=== PATIENT | male | born 1995 | race American Indian/Alaskan Native ===

== ENCOUNTER 2021-09-06 11:25 | Emergency (ER) | payer SELFPAY ==
[2021-09-06] MEDS ORDERED: ONDANSETRON 4 MG/2 ML INJ IM ONE (11:36)
[2021-09-06] MEDS ORDERED: fentaNYL 100 MCG/2 ML INJ IM ONE (11:36)
[2021-09-06] MEDS ORDERED: TETANUS,DIPH,PERTUSS(ACELL) VACCINE 0.5 ML SYRINGE IM ONE (11:37)
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
[2021-09-06] MEDS ORDERED: HYDROGEN PEROXIDE 118 ML SOLUTION TP ONE (12:15)
[2021-09-06] MEDS ORDERED: LIDOCAINE (1%) 10 MG/1 ML VIAL 20 ML MDV INFILTRATI ONE (12:15)
[2021-09-06] MEDS ORDERED: SODIUM CHLORIDE 0.9% IRR 500 ML BOTTLE IR ONE (12:16)
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
[2021-09-06] MEDS ORDERED: ceFAZolin 1 GM VIAL IM ONE (13:05)
[2021-09-06] MEDS ORDERED: BACITRACIN ZINC OINT 28.4 GM TP STA (13:15)
[2021-09-06 13:55] VITALS: BP 123/85
== END 2021-09-06 13:54 | disposition home or self-care (01) ==
LOC: ED 11:25
DX: S01.81XA Laceration without foreign body of other part of head, initial encounter (principal); S09.90XA Unspecified injury of head, initial encounter; Y08.89XA Assault by other specified means, initial encounter; Y93.89 Activity, other specified; Y92.89 Other specified places as the place of occurrence of the external cause; Y99.8 Other external cause status
CPT/HCPCS: 12015; 70450; 70486; 90471; 90715; 96372; 99284; J0690; J2405; J3010; J3490

== ENCOUNTER 2021-09-06 23:06 | Emergency (ER) | payer SELFPAY ==
[2021-09-06 23:57] VITALS: BP 130/92
[2021-09-07] MEDS ORDERED: NALOXONE 0.4 MG/1 ML INJ IV PRN (00:23)
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
== END 2021-09-07 00:49 | disposition left against medical advice (07) ==
LOC: ED 23:06
DX: R55 Syncope and collapse (principal); F17.200 Nicotine dependence, unspecified, uncomplicated; Z98.890 Other specified postprocedural states; Z79.899 Other long term (current) drug therapy
CPT/HCPCS: 99283